=== PATIENT | male | born 1950 | race Caucasian/White ===

== ENCOUNTER → 2019-07-21 | Outpatient (CLI) | payer MEDICARE ==
--- NOTE | 2019-07-21 10:04 | Diagnostic Imaging Report ---
Left hand, 3 views. History: Injury left hand playing golf 3 weeks ago, left ring finger pain. Findings: The soft tissues are normal. Bone mineralization is normal. There is no evidence of fracture or dislocation. There are no lytic or sclerotic lesions. There is mild joint space narrowing, subchondral sclerosis, and osteophytosis in the interphalangeal joints, metacarpophalangeal joints, first carpometacarpal joint, and distal radioulnar joint. IMPRESSION: Mild left hand DJD. No acute osseous abnormality. Signed by: Jose L Davila on 07/21/2019 10:01 AM
== END ==
LOC: RAD 09:07
PROVIDERS: ATTEND Family Medicine
DX: M79.642 Pain in left hand (principal)